=== PATIENT | male | born 1960 | race Caucasian/White ===

== ENCOUNTER 2024-01-18 07:03 | Day surgery (SDC) | payer OTHER ==
[~2024-01-18] VITALS: Ht 185.4 cm; Wt 93.8 kg
[~2024-01-18 07:03] MED LIST: LR 1,000 ML IV SCH; Ondansetron 4 MG/2 ML VIAL IV PRN
[2024-01-18] MEDS ORDERED: MOBIC15 MG PO (09:08)
[2024-01-18 09:25] VITALS: BP 132/81; PULSE 54; TEMP 97.9
[2024-01-18] MEDS ORDERED: Lidocaine PF 2% (20 MG/ML) 5 ML VIAL ONE (09:58)
[2024-01-18 10:40] VITALS: BP 102/68; PULSE 54
--- NOTE | 2024-01-18 10:47 | NUR ---
Patient returns from procedure at 1040, via cart. Transfers to recliner with assist x2. at bedside. VSS. Bedside handoff received from ETHAN Francis. Coffee, muffin, and water given. Pt denies complaints. Call light within reach.
[2024-01-18 10:55] VITALS: BP 119/74; PULSE 52
[2024-01-18 11:00] VITALS: BP 121/83
--- NOTE | 2024-01-18 11:21 | NUR ---
Discharge instructions and education reviewed with patient and at 1100. Questions answered. Pt dressed at 1105. Dr. Dcw in to talk with patient. Pt discharges at 1115 [address] wifes vehicle via w/c, accompanied by this nurse. No complaints at that time.
== END 2024-01-18 11:15 | disposition home or self-care (01) ==
LOC: SDCO 07:03
DX: Z12.11 Encounter for screening for malignant neoplasm of colon (principal); K63.5 Polyp of colon; K63.3 Ulcer of intestine; K57.30 Diverticulosis of large intestine without perforation or abscess without bleeding; K64.1 Second degree hemorrhoids
CPT/HCPCS: J2704; J7120